=== PATIENT | male | born 1965 | race Caucasian/White ===

== ENCOUNTER 2022-08-26 11:01 | Emergency (ER) | payer OTHER, SELFPAY ==
[2022-08-26 11:52] VITALS: BP 136/67; PULSE 80; RESP 18; TEMP 36.9; O2SAT 96
--- NOTE | 2022-08-26 12:14 | ED.GENADUL_ITS ---
Discharge Plan Disposition Patient Disposition: HOME Condition: Good Discharge Details Clinical Impression: Hand laceration Primary Care Provider: Unknown,Unknown ED Provider: Destinee Cunningham Home Meds and New Rx's Prescriptions: New amoxicillin-pot clavulanate 875-125 mg tablet 1 tab PO BID 5 Days Qty: 10 0RF Continued lisinopril 10 mg Tablet 10 mg PO DAILY rosuvastatin 10 mg Tablet 10 mg PO DAILY Discharge Instructions Instructions: Laceration (ED) Additional Instructions: Please keep your wound clean, dry, covered. Monitor signs infection including redness, warmth, drainage, increased pain fevers or chills. Please take the antibiotics are prescribed to help prevent any infection. You may use Tylenol and ibuprofen as needed for discomfort. You may wash and water and soap but please do not soak or submerge. Please return in 7 to 10 days for suture removal. Tetanus was updated today. Discharge Data Discharge Date/Time-TO BE ENTERED AT DEPARTURE: 08/26/22 13:22 Medical Decision Making Patient is a pleasant 57-year-old [id number] male presents today with chief complaint of laceration to left hand. He reports a prior to arrival he was cutting open a deer when he excellently cut his hand with the blade while his hand was in a deer. He denies other injuries from the incident. States he was bleeding significantly. Patient is a diabetic on insulin pump. He denies b eing on any anticoagulants. On exam, patient appears nontoxic. He has a 4cm laceration over the left thenar emminance. 2+ distal pulses. Deep structures intact. No evidence of ligamentous or neurologic injury. Will call PCP in [place] to check on Tetanus. Patient and I discussed risks/benefits as well as expected procedural steps and alternatives for wound closure/care. He voices understanding and wishes to proceed with suture closure. Please see procedure note. Patient tolerated this well. Aneesthetized with Lido with epi which controlled bleeding. Woudn explored to base in a bloodless field with no FB or debris. Deep structures intact. Wound edges came to gether well without tension. Tetanus unkonwn even by PCP, will update today. As wound was very contaminated during the intial injury with hand being in a deer, and patient being type I DM, will place on abx. We discussed wound care at depth, discussed sxs of infection and when to seek care urgently once again. He will return in one week for reevaluation. All of his questions and concerns were addressed, he is in agreement with [facility] plan. HPI General Date/Time Provider Initiated Documentation: 08/26/22 12:13 . Limitations to Documentation: no limitations . Information obtained by: patient and RN notes reviewed . History of Present Illness 57 year old M presents to the emergency department with the chief complaint of laceration to left hand, described as mild, with intensity rated at 2. Quality is described as aching, and is localized to the left and upper extremity. Patient reports no radiation. Patient started experiencing this hour(s) and it has been constant. Immobilization improves symptom(s), (wrapped in duck tape) No exacerbating factors reported . Patient notes other (denies numbness/tingling); denies fever/chills, rash and weakness. Patient did receive the following treatments prior to arrival, none Related Data Home Medications Medication Instructions Recorded Confirmed amoxicillin 875 mg-potassium 1 tab PO BID 5 days #10 tabs 08/26/22 clavulanate 125 mg tablet lisinopril 10 mg tablet 10 mg PO DAILY 08/26/22 08/26/22 rosuvastatin 10 mg tablet 10 mg PO DAILY 08/26/22 08/26/22 Previous Rx's Medication Instructions Recorded amoxicillin 875 mg-potassium 1 tab PO BID 5 days #10 tabs 08/26/22 clavulanate 125 mg tablet Allergies Allergy/AdvReac Type Severity Reaction Status Date / Time No Known Allergies Allergy Unverified 08/26/22 11:53 General Stated Complaint: Laceration FLORENCIA: 4 Review of Systems Constitutional Constitutional: Reports as per HPI, Denies chills and Denies fever(s) Musculoskeletal Musculoskeletal: Reports as per HPI Integumentary/Breasts Skin/Breast: Reports as per HPI Neurologic Neurologic: Reports as per HPI, Denies sensory deficit and Denies paresthesias [facility] All Active Problems (Updated 08/26/22 @ 12:55 by LINDSEY George) Hand laceration (Acute) Social History Smoking/Tobacco Use Status: Never Smoking risk assessment performed?: Yes Alcohol Intake: never Drug use: Never Substance use type: does not use Do you feel safe at home: Yes Do you feel safe in your relationship?: Yes Exam Const General: cooperative, healthy appearing, comfortable, no acute distress and well developed Nutritional Appearance: average body habitus and well nourished Orientation: alert and awake Resp Effort & Inspection: normal respiratory effort, able to speak in complete sentences and no respiratory distress Cardio Rate: regular rate Rhythm: regular rhythm Skin Trauma: laceration (left. hand) Neuro General: patient alert and patient awake Cognition: normal cognition Speech: speech normal Gait: normal gait Sensory Exam: no sensory deficits noted Extrem Hand/finger images: 1. 4cm linear laceration. Tunnels slightly radially. Bleeding noted, controlled with pressure. Sensation intact distally. Able to move thumb and index finger in all planes. Deep structures are intact. Intact capillary refill, 2+ distal pulses Psych Appearance: grossly normal and well kempt Mental Status: mental status grossly normal Speech and Movement: speech and movement normal Course Vital Signs Vital signs: Vital Signs Temperature 36.9 C 08/26/22 11:52 Pulse 80 08/26/22 11:52 Respiratory Rate 18 08/26/22 11:52 Blood Pressure 136/67 08/26/22 11:52 Pulse Oximetry 96 08/26/22 11:52 Temperature 36.9 C 08/26/22 11:52 Temperature Source Temporal Artery Scan 08/26/22 11:52 Pulse 80 08/26/22 11:52 Respiratory Rate 18 08/26/22 11:52 Blood Pressure 136/67 08/26/22 11:52 Blood Pressure Position Sitting 08/26/22 11:52 Pulse Oximetry 96 08/26/22 11:52 Oxygen Delivery Method Room Air 08/26/22 11:52 Oxygen Flow Rate 0 08/26/22 11:52 Pain Level 2 08/26/22 11:52 Procedures Laceration Laceration 1: Site: hand Side (If applicable): left Size (cm): 4 Description: linear Depth: simple, single layer Local Anesthetic: Lidocaine 1% and with Epi Amount of anesthesia used (mL): 8 Pre-repair: wound explored, irrigated extensively and deep structures intact Skin layer closed with: nylon Size (cm): 5-0 Number of sutures: 6
== END 2022-08-26 13:22 | disposition home or self-care (01) ==
PROVIDERS: Emergency Provider Physician Assistant
DX: S61.412A Laceration without foreign body of left hand, initial encounter (principal); W26.0XXA Contact with knife, initial encounter
CPT/HCPCS: 12002; 90471